=== PATIENT | female | born 1995 | race African-American/Black ===

== ENCOUNTER 2023-08-03 13:06 | Emergency (ER) | payer MEDICAID ==
[~2023-08-03] VITALS: Ht 160 cm; Wt 101.2 kg
[2023-08-03] MEDS ORDERED: PREN1TAB79 PO (13:53)
[2023-08-03 13:56] VITALS: BP_SYST 122; PULSE 84; RESP 16; TEMP 97; O2SAT 99
== END 2023-08-03 20:16 | disposition left against medical advice (07) ==
LOC: SED 13:06
DX: O26.893 Other specified pregnancy related conditions, third trimester (principal); Z3A.32 32 weeks gestation of pregnancy; Z53.21 Procedure and treatment not carried out due to patient leaving prior to being seen by health care provider
CPT/HCPCS: 99281